=== PATIENT | male | born 1980 | race Caucasian/White ===

== ENCOUNTER 2020-12-13 18:39 | Emergency (ER) | payer OTHER ==
--- NOTE | 2020-12-13 19:11 | EDM.PDOC ---
ED HPI GENERAL MEDICAL PROBLEM - General Chief Complaint: Flank Pain Stated Complaint: POSSIBLE KIDNEY PAIN Time Seen by Provider: 12/13/20 18:49 Source of Information: Reports: Patient History Limitations: Reports: No Limitations - History of Present Illness INITIAL COMMENTS - FREE TEXT/NARRATIVE: The patient presents with right flank pain. He says this started last night. T he pain is constant and 5/10. He did not hurt his back. He did have a procedure done on Monday by interventional radiology where the went in through is right internal jugular and put coils in veins in his left testicle. He had varicoceles. He has no fever, chills, cough, chest pain, shortness of breath, nausea, vomiting, dysuria or hematuria. He has no history of kidney stones. He has no pain in he scrotum area. There were no complications with the procedure. He is camping in the area. Onset: Gradual Duration: Day(s): (last night) Location: Reports: Back Quality: Reports: Ache Severity: Moderate Improves with: Reports: None Worsens with: Reports: None Associated Symptoms: Reports: No Other Symptoms Treatments KINESEOLOGIST: Reports: NSAIDS Right Flank Pain Score (Numeric/FACES): 5 - Related Data Allergies Allergy/AdvReac Type Severity Reaction Status Date / Time No Known Allergies Allergy Verified 12/13/20 19:09 Home Meds: Home Meds . [No Known Home Meds] 12/13/20 [History] ED ROS GENERAL - Review of Systems Review Of Systems: See Below Constitutional: Reports: No Symptoms HEENT: Reports: No Symptoms Respiratory: Reports: No Symptoms Cardiovascular: Reports: No Symptoms Endocrine: Reports: No Symptoms GI/Abdominal: Reports: No Symptoms : Reports: Flank Pain (right) Musculoskeletal: Reports: Other (right flank pain) ED EXAM, RENAL/ - Physical Exam Exam: See Below Exam Limited By: No Limitations General Appearance: Alert, No Apparent Distress Ears: Normal External Exam Nose: Normal Inspection Head: Atraumatic, Normocephalic Neck: Normal Inspection Respiratory/Chest: No Respiratory Distress, Lungs Clear, Normal Breath Sounds Cardiovascular: Regular Rate, Rhythm, No Edema, No Murmur GI/Abdominal: Soft, Non-Tender, No Organomegaly, No Mass Back Exam: CVA Tenderness (R) Extremities: Normal Inspection Neurological: Alert, Oriented, No Motor/Sensory Deficits Course - Vital Signs Last Recorded V/S: Last Vital Signs Temp 97.4 F 12/13/20 18:54 Pulse 62 12/13/20 18:54 Resp 16 12/13/20 18:54 BP 131/96 H 12/13/20 18:54 Pulse Ox 99 12/13/20 18:54 - Orders/Labs/Meds Orders: Active Orders 24 hr Category Date Time Status Abdomen Pelvis wo Cont [CT] Stat Exams 12/13/20 19:00 Taken Labs: Laboratory Tests 12/13/20 12/13/20 12/13/20 Range/Units 19:02 19:15 19:15 WBC 7.55 (4.23-9.07) K/mm3 RBC 5.42 (4.63-6.08) M/mm3 Hgb 15.9 (13.7-17.5) gm/dl Hct 45.3 (40.1-51.0) % MCV 83.6 (79.0-92.2) fl MCH 29.3 (25.7-32.2) pg MCHC 35.1 (32.2-35.5) g/dl RDW Std Deviation 37.7 (35.1-43.9) fL Plt Count 164 (163-337) K/mm3 MPV 12.3 (9.4-12.3) fl Neut % (Auto) 67.5 (34.0-67.9) % Lymph % (Auto) 19.2 L (21.8-53.1) % Hendricks % (Auto) 11.0 (5.3-12.2) % Eos % (Auto) 1.9 (0.8-7.0) Baso % (Auto) 0.3 (0.1-1.2) % Neut # (Auto) 5.10 (1.78-5.38) K/mm3 Lymph # (Auto) 1.45 (1.32-3.57) K/mm3 Hendricks # (Auto) 0.83 H (0.30-0.82) K/mm3 Eos # (Auto) 0.14 (0.04-0.54) K/mm3 Baso # (Auto) 0.02 (0.01-0.08) K/mm3 Sodium 143 (136-145) mEq/L Potassium 4.0 (3.5-5.1) mEq/L Chloride 105 (98-107) mEq/L Carbon Dioxide 28 (21-32) mEq/L Anion Gap 14.0 (5-15) BUN 18 (7-18) mg/dL Creatinine 1.2 (0.7-1.3) mg/dL Est Cr Clr Drug Dosing 85.34 mL/min Estimated GFR (MDRD) > 60 (>60) mL/min BUN/Creatinine Ratio 15.0 (14-18) Glucose 96 (70-99) mg/dL Calcium 9.0 (8.5-10.1) mg/dL Total Bilirubin 0.7 (0.2-1.0) mg/dL AST 24 (15-37) U/L ALT 39 (16-63) U/L Alkaline Phosphatase 83 (46-116) U/L Total Protein 7.8 (6.4-8.2) g/dl Albumin 4.1 (3.4-5.0) g/dl Globulin 3.7 gm/dL Albumin/Globulin Ratio 1.1 (1-2) Urine Color Yellow (Yellow) Urine Appearance Clear (Clear) Urine pH 6.0 (5.0-8.0) Ur Specific [place] 1.025 (1.005-1.030) Urine Protein Negative (Negative) Urine Glucose (UA) Negative (Negative) Urine Ketones Negative (Negative) Urine Occult Blood Negative (Negative) Urine Nitrite Negative (Negative) Urine Bilirubin Negative (Negative) Urine Urobilinogen 0.2 (0.2-1.0) Ur Leukocyte Esterase Negative (Negative) Urine RBC Not seen (0-5) /hpf Urine WBC 0-5 (0-5) /hpf Ur Epithelial Cells Not seen (0-5) /hpf Urine Bacteria Rare (FEW) /hpf Urine Mucus Not seen (FEW) /hpf - Re-Assessments/Exams Free Text/Narrative Re-Assessment/Exam: 12/13/20 19:11 I ordered labs, UA and a CT of his abdomen and pelvis without contrast. 12/13/20 21:29 His CBC and CMP look good. His stent does not appear to have moved and there is no kidney stone or sign of one on the right side. Departure - Departure Time of Disposition: 21:30 Disposition: Home, Self-Care 01 Condition: Good Clinical Impression: Right flank pain - Discharge Information *PRESCRIPTION DRUG MONITORING PROGRAM REVIEWED*: Not Applicable *COPY OF PRESCRIPTION DRUG MONITORING REPORT IN PATIENT DIONE: Not Applicable Referrals: PCP,Not In Area [Primary Care Provider] - Forms: ED Department Discharge Additional Instructions: Drink plenty of fluids. Take tylenol or motrin for pain. Please return if you are worse. Sepsis Event Note (ED) - Evaluation Sepsis Screening Result: No Definite Risk - Focused Exam Vital Signs: Vital Signs Temp Pulse Resp BP Pulse Ox 12/13/20 18:54 97.4 F 62 16 131/96 H 99 - My Orders Last 24 Hours: My Active Orders 12/13/20 19:00 Abdomen Pelvis wo Cont [CT] Stat - Assessment/Plan Last 24 Hours: My Active Orders 12/13/20 19:00 Abdomen Pelvis wo Cont [CT] Stat
--- NOTE | 2020-12-14 08:22 | CT ---
CT abdomen and pelvis Technique: Multiple axial sections were obtained from above the dome of the diaphragm inferiorly through the pubic symphysis. Intravenous and oral contrast were not utilized. Reconstructed coronal and sagittal images were obtained. Comparison: No prior abdominal imaging is available. Findings: Visualized lung bases show nothing acute. Noncontrast appearance of the liver shows no focal abnormality. Spleen appears within normal limits. Adrenal glands showed no nodule. Right and left kidneys show no abnormal calcifications. Ureters show no abnormal calcifications. Pancreas shows no discrete abnormality. Gallbladder contains no calcified gallstones. Abdominal aorta shows no aneurysm. No retroperitoneal adenopathy or mesenteric abnormalities are seen. No pelvic mass or adenopathy is seen. No free fluid or inflammatory change is seen. There are hyperdense areas being seen along the anterior left psoas muscle extending into the left inguinal region compatible with previous varicose surgery which appear within normal limits. Slight increased stool is seen within the colon. Appendix felt to be visualized and is normal in size. Bone window settings were reviewed. No acute osseous abnormality is appreciated. Impression: 1. Prior embolization coils along the anterior left psoas muscle which appear within normal limits. 2. Nothing acute is otherwise seen on noncontrast CT study of the abdomen and pelvis. Diagnostic code #2 I agree with preliminary report from [facility], finalized on 12/13/20, 10:27 PM CDT, code 1
== END 2020-12-13 21:35 | disposition home or self-care (01) ==
LOC: JD.ED 18:39
DX: R10.9 Unspecified abdominal pain (principal)
CPT/HCPCS: 36415; 74176; 74176-26; 80053; 81001; 85025; 99283; 99284-25